=== PATIENT | male | born 2000 | race Two or more races ===

== ENCOUNTER 2023-10-30 13:41 | Emergency (ER) | payer OTHER ==
[~2023-10-30] VITALS: Ht 175.3 cm; Wt 84.1 kg
[2023-10-30 13:50] VITALS: BP 110/76; PULSE 76; RESP 16; TEMP 98.4
== END 2023-10-30 16:25 | disposition left against medical advice (07) ==
LOC: EMS 13:41
DX: R11.2 Nausea with vomiting, unspecified (principal); Z53.21 Procedure and treatment not carried out due to patient leaving prior to being seen by health care provider